=== PATIENT | female | born 1990 | race Caucasian/White ===

== ENCOUNTER → 2016-04-23 | Outpatient (CLI) | payer OTHER ==
--- NOTE | 2016-04-23 23:36 | MR ---
EXAMINATION TYPE: MR chest wo/w con DATE OF EXAM: 04/23/2016 9:40 AM COMPARISON: NONE HISTORY: lump rt parasternal area, chest pain CONTRAST: Standard multiplanar, multisequence MRI departmental protocol utilizing 14 mL intravenous MultiHance gadolinium contrast. FINDINGS: There is a small marker apparently placed at the area of concern in the right side of the s ternum at the level of the mid heart. The sternum has normal signal pattern. There is no evidence of retrosternal mass. The breast tissue visualized has normal signal pattern without evidence of a mass. On the STIR images there is high signal at the costochondral junction on the right side of one rib. I see no definite pathologic enhancement. This appears to be within the cartilage and not at the junct ion with the rib. This area is slightly bulkier than the corresponding opposite cartilage. IMPRESSION: There is increased signal on the STIR images within the costal cartilage of a right rib that measures 13 mm and is 15 mm from the sternal margin. This probably relates to focal costochondritis. This dada ears to be the anterior right fifth rib. This cartilage is slightly bulkier than the matched opposite cartilage.
== END | disposition home or self-care (01) ==
LOC: RADMRIMAIN 08:34
PROVIDERS: ATTEND Surgery
DX: R22.2 Localized swelling, mass and lump, trunk (principal); R07.9 Chest pain, unspecified
CPT/HCPCS: 71552; A9577